=== PATIENT | male | born 1945 | race Caucasian/White ===

== ENCOUNTER 2020-07-22 11:50 | Emergency (ER) | payer MEDICARE, OTHER, SELFPAY ==
[2020-07-22 12:00] VITALS: BP 136/61; PULSE 89; RESP 18; TEMP 37.3; O2SAT 96
--- NOTE | 2020-07-22 12:31 | ED.WOUNDLAC ---
HPI - Wound/Laceration General Chief Complaint: Extremity Injury, Upper Stated Complaint: right hand injury Time Seen by Provider: 07/22/20 12:14 Source: patient and RN notes reviewed Mode of arrival: ambulatory Limitations: no limitations History of Present Illness HPI narrative: Patient presents today complaining of a dog bite to his right hand that was sustained last night. This left a laceration on the dorsum of the hand. He is up-to-date on his tetanus vaccine. He did clean the hand with peroxide after the initial injury. States his dog is up-to-date on all vaccines. Denies any current pain. Related Data Home Medications Medication Instructions Recorded Confirmed albuterol sulfate 2 puff INHALATION QID PRN 07/22/20 07/22/20 aspirin 81 mg PO DAILY 07/22/20 07/22/20 atorvastatin 20 mg PO DAILY 07/22/20 07/22/20 ipratropium-albuterol 3 ml INHALATION QID PRN 07/22/20 07/22/20 losartan 50 mg PO DAILY 07/22/20 07/22/20 prednisone 10 mg PO DAILY 07/22/20 07/22/20 Allergies Allergy/AdvReac Type Severity Reaction Status Date / Time No Known Allergies Allergy Verified 07/22/20 12:53 Review of Systems Review of Systems: Narrative: CONSTITUTIONAL: Denies body aches, fever, chills, or sweats. EYES: Denies visual changes, redness, or discharge. ENT: Denies rhinorrhea, congestion, sore throat, or otalgia. CARDIOVASCULAR: Denies chest pain, palpitations, or edema. RESPIRATORY: Denies cough or dyspnea. GASTROINTESTINAL: Denies abdominal pain, nausea, vomiting, or diarrhea. GENITOURINARY: Denies dysuria or hematuria. SKIN: Denies rash, itching. + Dog bite laceration to right hand MUSCULOSKELETAL: Denies back pain, joint pain, or myalgia. NEUROLOGIC: Denies headache, numbness, tingling, or weakness. PSYCH: Denies depression or anxiety. [facility] Past Medical History Medical History (Updated 07/22/20 @ 15:19 by Oksana Liang, LOGISTICS SPECIALIST, ) COPD (chronic obstructive pulmonary disease) Hypercholesterolemia Hypertension Comments At time of signature, I have reviewed and agree with nursing past medical, surgical, social and family history unless otherwise noted. Please see nursing chart for further information. There is no relevant family history pertinent to the presenting complaint Exam Narrative: Exam Narrative: GENERAL: Chronically ill-appearing, and in no acute distress. Wearing home O2. HEAD: Normocephalic, atraumatic. EYES: EOMI. No redness or drainage. Conjunctivae normal. ENT: Mucous membranes pink and moist. NECK: Normal AROM. Supple. No lymphadenopathy. CHEST: No respiratory distress. EXTREMITIES:Right hand: 7cm linear skin tear to the dorsum of the 2nd metacarpal/space between 1st and 2nd metacarpals. Mild active bleeding when cleaned. Distal sensation intact. Capillary refill normal. Full AROM of all fingers. No erythema, edema, or purulent discharge noted. Nontender to palpation. SKIN: Warm, dry, no rash. Capillary refill normal. Normal skin turgor. NEURO: No focal deficits. Alert and oriented x3. Gait steady. PSYCH: Normal affect. No signs of depression or anxiety. Course Vital Signs Vital signs: Vital Signs Temperature 99.2 F 07/22/20 12:00 Pulse Rate 89 07/22/20 12:00 Respiratory Rate 18 07/22/20 12:00 Blood Pressure 136/61 07/22/20 12:00 Pulse Oximetry 96 07/22/20 12:00 Temperature 99.2 F 07/22/20 12:00 Pulse Rate 89 07/22/20 12:00 Respiratory Rate 18 07/22/20 12:00 Blood Pressure 136/61 07/22/20 12:00 Pulse Oximetry 96 07/22/20 12:00 Reviewed. Pt has been instructed to follow up with his PCP regarding his elevated blood pressure today. Procedures Laceration Laceration 1: Date: 07/22/20 Time: 12:25 Site: hand Side (If applicable): right Size (cm): 7 Description: linear Depth: simple, single layer (Skin tear) Pre-repair: wound explored and irrigated ====== Skin Level ====== Skin
== END 2020-07-22 12:43 | disposition home or self-care (01) ==
PROVIDERS: Emergency Provider Nurse Practitioner; PCP Internal Medicine
DX: S61.411A Laceration without foreign body of right hand, initial encounter (principal); W54.0XXA Bitten by dog, initial encounter; J44.9 Chronic obstructive pulmonary disease, unspecified; E78.00 Pure hypercholesterolemia, unspecified; I10 Essential (primary) hypertension; Z79.82 Long term (current) use of aspirin
CPT/HCPCS: 99212; G0463